=== PATIENT | female | born 1970 | race African-American/Black ===

== ENCOUNTER 2018-07-14 17:39 | Emergency (ER) | payer BC, OTHER ==
--- NOTE | 2018-07-14 18:04 | PDOC ---
Rapid Medical Evaluation Chief Complaint: Sore Throat Time Seen by Provider: 07/14/18 18:03 Medical Evaluation: Allergies Allergy/AdvReac Type Severity Reaction Status Date / Time Penicillins Allergy Intermediate Itching Verified 07/14/18 18:03 07/14/18 18:03 I have performed a brief in person evaluation of this patient. The patient presents with a chief complaint of: sore throat, fever, congestion Pt is a 47 YO female who complains of sore throat, myalgias and fever x 2 days. Pt denies receiving her influenza vaccination Pertinent PE: Skin: Clear Lungs: Clear Heart: RRR MS: Moves all extremities without difficulty. Neuro: Alert and oriented Psych: Appropriate affect I have ordered the following: RBS and influenza The patient will proceed to: pt will go to [facility] for further evaluation. Discharge Disposition - Diagnosis Fever Qualifiers: Fever type: unspecified Qualified Code(s): R50.9 - Fever, unspecified - Referrals Referrals: Arturo Villatoro MD [Primary Care Provider] - - Patient Instructions - Post Discharge Activity
[2018-07-14 18:06] VITALS: BP 123/70; PULSE 100; TEMP 100.1; BMI 38.6
[2018-07-14] MEDS ORDERED: DEXAMETHASONE SOD PHOSPHATE 10 MG/1 ML VIAL ONE (19:50)
[2018-07-14] MEDS ORDERED: DEXAMETHASONE LIQUID 0.5 MG/5 ML 240 ML BULK BOTTLE PO ONE (19:50)
--- NOTE | 2018-07-14 19:53 | PDOC ---
History of Present Illness - General Chief Complaint: Sore Throat Stated Complaint: Sore Throat Time Seen by Provider: 07/14/18 18:03 - History of Present Illness Initial Comments: 47-year-old female with a past medical history which is distant for asthma she does not take any home meds. Presents for evaluation of fever sore throat chills and night sweats 1 day. 07/14/18 19:50 Past History - Past Medical History Allergies/Adverse Reactions: Allergies Allergy/AdvReac Type Severity Reaction Status Date / Time Penicillins Allergy Intermediate Itching Verified 07/14/18 18:03 Home Medications: Ambulatory Orders Azithromycin [Zithromax -] 250 mg PO UTDICT #6 tab 07/14/18 Anemia: Yes Asthma: No Cancer: No Cardiac Disorders: No CVA: No COPD: No CHF: No Dementia: No Diabetes: No GI Disorders: Yes (ACID REFLUX) Disorders: No HTN: No Hypercholesterolemia: No Liver Disease: No Seizures: No Thyroid Disease: No - Surgical History Abdominal Surgery: Yes (GASTRIC SLEEVE 06/14) Appendectomy: No Cardiac Surgery: No Cholecystectomy: No Lung Surgery: No Neurologic Surgery: No Orthopedic Surgery: No - Suicide/Smoking/Psychosocial Hx Smoking Status: No Smoking History: Never smoked Number of Cigarettes Smoked Daily: 0 Information on smoking cessation initiated: No Hx Alcohol Use: Yes (SOCIAL) Drug/Substance Use Hx: No Substance Use Type: Alcohol Hx Substance Use Treatment: No Review of Systems - Review of Systems Constitutional: Yes: Chills, Fever, Malaise, Night Sweats HEENTM: Yes: Throat Pain All Other Systems: Reviewed and Negative *Physical Exam - Vital Signs Last Vital Signs Temp Pulse Resp BP Pulse Ox 100.1 F H 100 H 18 123/70 100 07/14/18 18:04 07/14/18 18:04 07/14/18 18:04 07/14/18 18:04 07/14/18 18:04 - Physical Exam Comments: HEAD: NC/AT EYES: Conjuntiva clear Ears: Canals and TM's normal NOSE: No d/c THROAT: Moist mucous membrances, oral pharanx injected with exudate, uvula midline NECK: Supple without adenopathy CARDIAC: S1 S2 LUNGS: CTA Full and Equal breath sounds ABDOMEN: Soft NT ND MS: Full ROM in all joints without edema NEUROLOGIC: No gross sensory or motor deficits, NVID SKIN: Normal color and temperature no lesions or rashes 07/14/18 19:51 Medical Decision Making - Medical Decision Making We'll treat strep based on clinical findings. We'll treat pain and fever with Decadron 07/14/18 19:51 *DC/Admit/Observation/Transfer Diagnosis at time of Disposition: Strep pharyngitis Fever Qualifiers: Fever type: unspecified Qualified Code(s): R50.9 - Fever, unspecified - Discharge Dispostion Disposition: HOME Condition at time of disposition: Stable Decision to Admit order: No - Prescriptions Prescriptions: Azithromycin [Zithromax -] 250 mg PO UTDICT #6 tab - Referrals Referrals: Arturo Villatoro MD [Primary Care Provider] - - Patient Instructions Printed Discharge Instructions: Strep Throat, DI for Strep Throat Additional Instructions: Follow-up with her primary care physician once 2 days for further evaluation and treatment options. Return to the emergency room should symptoms worsen or go unresolved. If she need medication for pain prior to the steroid working he may take Tylenol as directed. - Post Discharge Activity
== END 2018-07-14 19:56 | disposition home or self-care (01) ==
LOC: JERFT 17:39
DX: J02.0 Streptococcal pharyngitis (principal); B95.0 Streptococcus, group A, as the cause of diseases classified elsewhere
CPT/HCPCS: 87070; 87077; 87430; 87804; 99281-25

== ENCOUNTER 2020-06-14 05:15 | Inpatient (IN) | payer BC, OTHER ==
[2020-06-13 12:14] VITALS: BMI 42.3
--- OUTSIDE RECORDS SUMMARY | 2020-06-14 05:19 | XMS ---
:1970 Author Organization [facility] Support Name Relationship Address Phone [facility] Unavailable [place] [address] LEVI RIVERA MOTHER [address] [facility] [address] [place] [address] Re-disclosure Warning The records that you are about to access may contain information from federally- assisted alcohol or drug abuse programs. If such information is present, then the following federally mandated warning applies: This information has been disclosed to you from records protected by federal confidentiality rules (42 CFR part 2). The federal rules prohibit you from making any further disclosure of this information unless further disclosure is expressly permitted by the written consent of the person to whom it pertains or as otherwise permitted by 42 CFR part 2. A general authorization for the release of medical or other information is NOT sufficient for this purpose. The Federal rules restrict any use of the information to criminally investigate or prosecute any alcohol or drug abuse patient.The records that you are about to access may contain highly sensitive health information, the redisclosure of which is protected by Article 27-F of the [facility] Public Health law. If you continue you may haveaccess to information: Regarding HIV / AIDS; Provided by facilities licensed or operated by the [facility] Office of Mental Health; or Provided by the [facility] Office for People With Developmental Disabilities. If such information is present, then the following [facility] mandated warning applies: This information has been disclosed to you from confidential records which are protected by state law. State law prohibits you from making any further disclosure of this information without the specific written consent of the person to whom it pertains, or as otherwise permitted by law. Any unauthorized further disclosure in violation of state law may result in a fine or correction sentence or both. A general authorization for the release of medical or other information is NOT sufficient authorization for further disclosure. Insurance Providers Payer Policy type Policy ID Covered Covered libertarian's Policy Pl an name / Coverage libertarian ID relationship to [facility] ormation type charles GHI CBP [id number] SP [id number] OUTPT BC PPO [id number] SP [id number] GHI CBP [id number] SP [id number] OUTPT BC PPO [id number] SP [id number] Results ID Date Data Source [id number] 06/09/2020 10:33:00 AM EDT [facility] Name Value Range Interpretation Description Data Sup porting Code Source(s) Document(s ) SARS [facility] coronavirus 2 RNA This lab was ordered by [facility] and reported by [facility]. ID Date Data Source [id number] 02/27/2020 10:15:00 AM EDT [facility] Name Value Range Interpretation Description Data Sup porting Code Source(s) Document(s ) SARS [facility] CORONAVIRUS 2 RNA This lab was ordered by [facility] and reported by [facility]. Procedure
--- NOTE | 2020-06-14 07:11 | HP ---
History & Physical Update - History History: No Change - Physical Physical: No Change - Assessment Assessment: No Change - Plan Plan: No Change (H&P reviwed , no changes , for supracervical abdominal hyst erectomy, bilateral salpingectomy)
[2020-06-14] MEDS ORDERED: DEXAMETHASONE SOD PHOSPHATE/PF 10 MG/ML SDV ONE (08:35)
[2020-06-14] MEDS ORDERED: MIDAZOLAM HCL 2 MG/2 ML SINGLE DOSE VIAL ONE ×2 (11:18)
[2020-06-14] MEDS ORDERED: fentaNYL CITRATE 250 MCG/5 ML VIAL ONE (12:13)
[2020-06-14] MEDS ORDERED: ceFAZolin 2 GRAM PREMIX BAG IVPB ONE (12:20)
[2020-06-14] MEDS ORDERED: KETOROLAC TROMETHAMINE 30 MG/1 ML VIAL ONE (12:22)
[2020-06-14] MEDS ORDERED: ceFAZolin SODIUM 1 GM VIAL ONE (12:22)
[2020-06-14] MEDS ORDERED: LIDOCAINE HCL/PF 2% SDV 5ML VIAL ONE (12:22)
[2020-06-14] MEDS ORDERED: DEXAMETHASONE SOD PHOSPHATE 4 MG/1 ML VIAL ONE (12:22)
[2020-06-14] MEDS ORDERED: GLYCOPYRROLATE 0.2 MG/1 ML VIAL ONE (12:22)
[2020-06-14] MEDS ORDERED: PROPOFOL 20 ML ONE (12:22)
[2020-06-14] MEDS ORDERED: HYDROmorphone HCl 2 MG/ML VIAL ONE (12:28)
[2020-06-14] MEDS ORDERED: NEOSTIGMINE METHYLSULFATE 0.5 MG/ML - 10 ML MDV ONE (13:32)
[2020-06-14] MEDS ORDERED: ONDANSETRON 4 MG/2 ML VIAL IVPUSH PRN ×2 (13:41→14:33)
[2020-06-14] MEDS ORDERED: oxyCODONE HCL 5 MG TABLET PO PRN ×3 (13:42→14:35)
[2020-06-14] MEDS ORDERED: LACTATED RINGERS SOLUTION 1,000 ML IV SCH (13:45)
[2020-06-14] MEDS ORDERED: IBUPROFEN 600 MG TABLET (FP) PO PRN (14:33)
[2020-06-14] MEDS ORDERED: IBUPROFEN 800 MG/8 ML IJ IVPB PRN (14:33)
--- NOTE | 2020-06-14 14:33 | OP ---
Operative Note - Note: Operative Date: 06/14/20 Pre-Operative Diagnosis: , pelvic pain, fibroid uterus,menometrorrhagia Operation: supracervical abdominal hysterectomy, bilateral salpingectomy Findings: large multiple fibroid uterus Surgeon: Joe Beltrán Big Data Developer: Kat Weber Anesthesia: General Specimens Removed: uterus, both tubes Estimated Blood Loss (mls): 200 Drains & Tubes with Location: weaver Blood Volume Replaced (mls): 0 Operative Report Dictated: Yes
[2020-06-14] MEDS ORDERED: ELECTROLYTE-148 SOLN 1,000 ML IV SCH (14:45)
[2020-06-14] MEDS: ACETAMINOPHEN 325 MG TABLET (FP) PO SCH ×2 (18:23→21:20)
[2020-06-14] MEDS: CEFAZOLIN 2 GM/D5W 2 GM/50 ML ML IVPB SCH (18:27)
[2020-06-14] MEDS: oxyCODONE HCL 5 MG TABLET PO PRN (18:28)
[2020-06-14] MEDS: oxyCODONE HCL 10 MG SUSTAINED ACTING TABLET PO SCH (21:18)
[2020-06-15] MEDS: CEFAZOLIN 2 GM/D5W 2 GM/50 ML ML IVPB SCH (01:18)
[2020-06-15] MEDS: ACETAMINOPHEN 325 MG TABLET (FP) PO SCH ×4 (03:18→19:32)
[2020-06-15] MEDS: oxyCODONE HCL 5 MG TABLET PO PRN (06:32)
[2020-06-15] MEDS ORDERED: SIMETHICONE 80 MG TAB.CHEW (FP) PO PRN (07:41)
[2020-06-15] MEDS ORDERED: BISACODYL 5 MG TABLET.DR (FP) PO ONE (07:42)
[2020-06-15 08:00] LABS: HEMATOCRIT 31.7 % (32.4-45.2); MCH 23.8 pg (25.7-33.7); MCHC 31.7 g/dl (32.0-36.0); MEAN CELL VOLUME 75.1 fl (80-96); MEAN PLT VOLUME 8.8 fl (7.5-11.1); PLATELET COUNT 272 K/MM3 (134-434); RBC 4.22 M/mm3 (3.60-5.2); WHITE BLOOD COUNT 10.6 K/mm3 (4.0-10.0)
[2020-06-15 08:38] LABS: POTASSIUM 4.3 mmol/L (3.5-5.1)
[2020-06-15 08:55] LABS: BLOOD UREA NITROGEN 7.5 mg/dL (7-18); CALCIUM 8.7 mg/dL (8.5-10.1); CREATININE 0.7 mg/dL (0.55-1.3)
[2020-06-15] MEDS: FAMOTIDINE 20 MG TABLET PO SCH (10:35)
[2020-06-15] MEDS: oxyCODONE HCL 10 MG SUSTAINED ACTING TABLET PO SCH ×2 (10:35→21:23)
[2020-06-15] MEDS: ENOXAPARIN NA (PORCINE) 40 MG/0.4 ML DISP.SYRIN SQ SCH (10:36)
--- NOTE | 2020-06-15 11:29 | OP ---
DATE OF OPERATION: 06/14/2020 PREOPERATIVE DIAGNOSIS: Menometrorrhagia, pelvic pain, fibroid uterus. POSTOPERATIVE DIAGNOSIS: Menometrorrhagia, pelvic pain, fibroid uterus. PROCEDURE: Supracervical abdominal hysterectomy and bilateral salpingectomy. SURGEON: Joe Beltrán MD SENIOR QUALITY ASSURANCE ENGINEER: Kat Weber MD ESTIMATED BLOOD LOSS: 200 mL. FINDINGS: A large uterus with multiple fibroids. Both ovaries appear to be normal. DESCRIPTION OF PROCEDURE: The patient was taken to the operating room. Under adequate general anesthesia, abdomen and perineum were prepped and draped. Pfannenstiel abdominal skin incision was made. Abdominal wall was cut layer by layer until peritoneum was exposed and incised. Upon entering the abdominal cavity, upper abdomen was checked, was normal. Bowels were packed away. There was a large uterus with multiple myomas on it. Both ovaries appeared to be normal. Right tube was missing, prior ectopic . Left was normal. Both cornual regions of uterus were grasped with Valentina, and the uterus was delivered. Both round ligaments were identified and cauterized with bipolar cautery and cut. Anterior leaf of broad ligament was opened, and the bladder was pushed down. Then the left tube was grasped with a Kevin clamp, and left tube was removed with bipolar cautery, cauterized, cut, and removed. The right tube was missing. A hole was made in the broad ligament, and then the uteroovarian ligament was grasped with Umberto clamp bilaterally, cut, and the clamp replaced with first 0 Vicryl ties and then with 0 Vicryl sutures bilaterally. At this time the bladder was further pushed down, and uterine artery was identified bilaterally and skeletonized, and uterine artery was grasped with Umberto clamp bilaterally, cut, and the clamp replaced with 0 Vicryl suture bilaterally. Then paracervical area was clamped with Umberto clamp, cut, and the clamp replaced with 0 Vicryl suture bilaterally. At this time the specimen was removed above the cervix, and then cervix was sutured with interrupted suture of 1 Vicryl. Hemostasis was established. Both ovaries were checked, were normal. No active bleeding was seen. All lap pad, sponge, and instrument counts were correct, and peritoneum was closed with 0 Vicryl continuous suture. Muscles were brought together with interrupted suture of 0 Vicryl. Fascia was closed with 0 Vicryl continuous suture, subcutaneous fat interrupted suture of 0 Vicryl, and skin was closed with 3-0 Vicryl subcuticular continuous suture. Patient tolerated the procedure well, left the OR in good condition. Lui [id number]
--- NOTE | 2020-06-15 16:49 | PN ---
Progress Note (short form) - Note Progress Note: Post op day#1.S/P BENNIE with BSO under GA uneventful.Patient stable and c/o some pain for which she is on medication.No any anesthesia related problem.Patient Dc from the anesthesia care.
[2020-06-15] MEDS ORDERED: SENNOSIDES/DOCUSATE COMBO (SENNA PLUS) TABLET (UD) PO PRN (22:00)
--- NOTE | 2020-06-15 22:09 | PN ---
Progress Note (short form) - Note Progress Note: pod 1 doing well, has low abdominal discomfort CBC, BMP 06/15/20 07:05 06/15/20 07:05 Last Vital Signs Temp Pulse Resp BP Pulse Ox 97.5 F L 75 20 115/62 100 06/15/20 16:30 06/15/20 16:30 06/15/20 16:30 06/15/20 16:30 06/15/20 15:00 abdomen soft, no distension, no cva , BS are present incison dry, clean no calf tenderness no vaginal bleeding plan ambulate , advance diet pain management , plan for d/c home in am
[2020-06-16] MEDS: ACETAMINOPHEN 325 MG TABLET (FP) PO SCH ×3 (02:01→16:46)
[2020-06-16] MEDS: oxyCODONE HCL 5 MG TABLET PO PRN (06:01)
--- NOTE | 2020-06-16 07:42 | DS ---
Physical Exam-CHIEF ELECTRICIAN Vital Signs: Vital Signs Temperature 98.4 F 06/16/20 06:00 Pulse Rate 85 06/16/20 06:00 Respiratory Rate 20 06/16/20 06:00 Blood Pressure 116/88 06/16/20 06:00 O2 Sat by Pulse Oximetry (%) 94 L 06/16/20 06:00 Constitutional: Yes: Well Nourished, No Distress, Calm Eyes: Yes: WNL, Conjunctiva Clear, EOM Intact HENT: Yes: WNL, Atraumatic, Normocephalic Neck: Yes: WNL, Supple, Trachea Midline Cardiovascular: Yes: WNL, Regular Rate and Rhythm Respiratory: Yes: WNL, Regular, CTA Bilaterally Gastrointestinal: Yes: WNL ...Rectal Exam: Yes: WNL Renal/: Yes: WNL Breast(s): Yes: WNL Musculoskeletal: Yes: WNL Extremities: Yes: WNL Edema: No Integumentary: Yes: WNL Wound/Incision: Yes: Clean/Dry, Well Approximated, Sutures Intact Neurological: Yes: WNL, Alert, Oriented ...Motor Strength: WNL Psychiatric: Yes: WNL, Alert, Oriented Labs: CBC, BMP 06/15/20 07:05 06/15/20 07:05 Discharge Summary Problems reviewed: Yes Reason For Visit: PELVIC PAIN Procedures: Principal: supracervical abdominal hysterectomy, bilateral salpingectomy Hospital Course: no complication Plan of Treatment: follow up office 2 weeks Condition: Good - Instructions Diet, Activity, Other Instructions: regular diet, no intercourse , follow up office 2 weeks, if fever , heavy vaginal bleeding call Referrals: Joe Beltrán MD [Staff Physician] - Disposition: HOME - Home Medications Comprehensive Discharge Medication List: Ambulatory Orders Ferrous Sulfate [Feosol] 325 mg PO DAILY 02/24/20 Multivitamin [Multiple Vitamins] 1 each PO DAILY 02/24/20 Ibuprofen [Motrin -] 600 mg PO QID #28 tablet 03/01/20 Ibuprofen [Motrin -] 600 mg PO TID #90 tablet 06/15/20 oxyCODONE HCL [Roxicodone -] 5 mg PO Q6H PRN #20 tablet MDD 4 06/16/20
[2020-06-16] MEDS: FAMOTIDINE 20 MG TABLET PO SCH (10:22)
[2020-06-16] MEDS: ENOXAPARIN NA (PORCINE) 40 MG/0.4 ML DISP.SYRIN SQ SCH (10:23)
[2020-06-16] MEDS: oxyCODONE HCL 10 MG SUSTAINED ACTING TABLET PO SCH (10:23)
[2020-06-16 15:51] VITALS: BP 106/65; PULSE 74; TEMP 98.4
--- NOTE | 2020-06-20 16:38 | PATH ---
Surgical Pathology Report Patient Name: DONI RIVERA Med. Rec. #: [id number] /Age/Gender: 1970 (Age: 49) / F Account: [id number] Location: [facility] MED/SURG Taken: 06/14/2020 Received: 06/15/2020 Reported: 06/20/2020 Physicians: Joe Beltrán M.D. Specimen(s) Received UTERUS AND LEFT FALLOPIAN TUBE Clinical History Pelvic pain, menorrhagia Final Diagnosis UTERUS AND LEFT FALLOPIAN TUBE, SUPRACERVICAL HYSTERECTOMY AND LEFT SALPINGECTOMY: LEIOMYOMATA. ADENOMYOSIS. PROLIFERATIVE ENDOMETRIUM WITH CHRONIC ENDOMETRITIS. PORTION OF FALLOPIAN TUBE WITH ENDOSALPINGIOSIS. Electronically Signed Brittney Justin M.D. Gross Description Received in formalin labeled "uterus and left fallopian tube," is a 188 gram, supracervical uterus, and separate one portion of fallopian tube. The uterus measures 6 cm from superior to inferior, 8 cm from anterior to posterior, and 6.5 cm from left to right. The serosa is weston-pink and smooth. The endometrial cavity measures 4.5 cm in length and averages 3.5 cm from cornu to cornu. The endometrium is weston-red and measures up to 0.1 cm in thickness. The myometrium displays multiple submucosa and intramural nodules, raning from 1 cm to 4.5 cm in greatest dimension. The cut surface of the nodules is weston and rubbery with whorled architecture. The remaining myometrium is weston-pink and measures up to 2.5 cm in thickness. The left fimbriated fallopian tube measures 2.5 cm in length. The outer surface is rogers purple and smooth. Sectioning reveals an unremarkable lumen. Director Fraud sections are submitted in 9 cassettes as follows: 1- uterine stump; 2-5 endomyometrium with smaller submucosal nodules; 7-largest intramural nodule; 8- nodules; 9-left fallopian tube KWS/06/16/2020 keturahki/06/16/2020
== END 2020-06-16 18:04 | disposition home or self-care (01) | DRG 743 ==
LOC: J2C 05:15 → J8W 17:27
PROVIDERS: ADMIT Obstetrics & Gynecology; ATTEND Obstetrics & Gynecology
PROC: 0UB70ZZ Excision of Bilateral Fallopian Tubes, Open Approach (ICD-10-PCS; 2020-06-14)
PROC: 0UT90ZL Resection of Uterus, Supracervical, Open Approach (ICD-10-PCS; principal; 2020-06-14 11:00)
DX: D25.9 Leiomyoma of uterus, unspecified (principal); N92.1 Excessive and frequent menstruation with irregular cycle; R10.2 Pelvic and perineal pain
CPT/HCPCS: 36415; 80048; 84703; 85027; 86850; 86900; 86901; 88305-TC; 94760

== ENCOUNTER 2022-12-09 12:42 | Emergency (ER) | payer BC, OTHER ==
[2022-12-09 12:47] VITALS: BP 119/85; PULSE 87; RESP 18; TEMP 97.3; BMI 42.5
[2022-12-09] MEDS ORDERED: ACETAMINOPHEN 500 MG TABLET (FP) PO ONE (14:32)
[2022-12-09] MEDS ORDERED: IBUPROFEN 600 MG TABLET (FP) PO ONE ×2 (14:32→14:46)
[2022-12-09] MEDS ORDERED: ACETAMINOPHEN 500 MG TABLET (FP) ONE (14:46)
== END 2022-12-09 16:29 | disposition home or self-care (01) ==
LOC: JERFT 12:42
DX: M11.261 Other chondrocalcinosis, right knee (principal)
CPT/HCPCS: 73560-TC-RT-FY; 99283-25

== ENCOUNTER 2023-09-13 04:28 | Day surgery (SDC) | payer BC, OTHER ==
[2023-09-11 11:58] VITALS: BMI 38.9
[2023-09-13] MEDS ORDERED: LIDOCAINE HCL/PF 2% SDV 5ML VIAL ONE (09:48)
[2023-09-13] MEDS ORDERED: MIDAZOLAM HCL 2 MG/2 ML SINGLE DOSE VIAL ONE (09:48)
[2023-09-13] MEDS ORDERED: PROPOFOL 40 ML ONE (09:48)
[2023-09-13] MEDS ORDERED: ROCURONIUM BROMIDE 50 MG/5 ML SYRINGE ONE (09:50)
[2023-09-13] MEDS ORDERED: SUGAMMADEX SODIUM 200 MG/2 ML VIAL ONE (09:50)
[2023-09-13] MEDS ORDERED: BUPIVACAINE HCL/PF 0.5% (5MG/ML) 10 ML VIAL ONE (09:57)
[2023-09-13] MEDS ORDERED: CLINDAMYCIN 600 MG PREMIX BAG IVPB ONE ×2 (10:20→10:25)
[2023-09-13] MEDS ORDERED: ONDANSETRON 4 MG/2 ML VIAL ONE (10:24)
[2023-09-13] MEDS ORDERED: DEXAMETHASONE SOD PHOSPHATE 4 MG/1 ML VIAL ONE (10:24)
[2023-09-13] MEDS ORDERED: CLINDAMYCIN 600MG PREMIX IVPB 600 MG/50 ML BAG IVPB ONE (10:24)
[2023-09-13] MEDS ORDERED: GLYCOPYRROLATE 0.2 MG/1 ML VIAL ONE (10:25)
[2023-09-13] MEDS ORDERED: BUPIVACAINE HCL/PF 0.5% (5MG/ML) 10 ML VIAL IJ ONE (10:31)
[2023-09-13] MEDS ORDERED: ONDANSETRON 4 MG/2 ML VIAL IVPUSH PRN (11:59)
[2023-09-13] MEDS ORDERED: LACTATED RINGERS SOLUTION 1,000 ML IV SCH (12:00)
[2023-09-13] MEDS ORDERED: oxyCODONE HCL 5 MG TABLET PO PRN (16:17)
[2023-09-13 18:36] VITALS: BP 107/83; PULSE 78; RESP 20; TEMP 98.2
== END 2023-09-13 17:15 | disposition home or self-care (01) ==
LOC: JASU-SURG 04:28
PROVIDERS: ATTEND Surgery
PROC: 0FT44ZZ Resection of Gallbladder, Percutaneous Endoscopic Approach (ICD-10-PCS; principal; 2023-09-13 10:00)
DX: K80.10 Calculus of gallbladder with chronic cholecystitis without obstruction (principal)
CPT/HCPCS: 81025; 82962; 88304-TC; 94760